=== PATIENT | male | born 1950 | race Caucasian/White ===

== ENCOUNTER → 2017-02-06 | Outpatient (CLI) | payer OTHER ==
--- NOTE | ~2017-02-06 | US10 ---
[id number] [facility]. [facility] [address]. [place], [place] [address] [id number] O MR#: [id number] Acc #: [id number] NAME: DON PIEDRA : 1950 SEX: M STUDY DATE/TIME: 02/06/2017 9:49 UNIT: [facility]US ROOM: STUDY DESCRIPTION: US Aorta Complete Attending Physician: Estella Mccabe M.D. Referring Physician: Estella Mccabe M.D. Ordering Physician: Estella Mccabe M.D. Primary Care Physician: Estella Mccabe M.D. MEDICAL IMAGING REPORT This report is preliminary unless electronic signature is present EXAM Aortic ultrasound, 02/06/17 HISTORY Family history of abdominal aortic aneurysm. Screening evaluation COMPARISON STUDIES CT abdomen and pelvis, 02/04/16 FINDINGS There is fmxz-al-exxb color flow within the abdominal aorta. It is normal in caliber throughout the abdomen, about 2 cm in maximal dimension. Iliac arteries are normal in caliber as well, about 1 cm each in maximal AP dimension. There is idvi-km-ygby color flow in the aorta and iliac vessels. IMPRESSION Normal aortic ultrasound. No evidence of aneurysm. The iliac arteries are normal in caliber as well. Dictated by... Jose A Abad M.D. THIS IS AN ELECTRONICALLY VERIFIED REPORT Jose A Abad M.D. at 02/10/2017 12:14 PM TEV/ea TD: 02/06/2017 13:02 JOB #: [id number] MEDICAL IMAGING REPORT Page 1 of 1 COPY
== END | disposition home or self-care (01) ==
LOC: CGUS 02-05 09:45
DX: Z13.6 Encounter for screening for cardiovascular disorders (principal)
CPT/HCPCS: 76770

== ENCOUNTER → 2017-05-31 | Outpatient (CLI) | payer OTHER ==
[2017-05-31 15:35] LABS: HEMOGLOBIN 15.4 gm/dL (13.0-16.0); MEAN CELL VOLUME 90.4 FL (83-96); MEAN CORPUSCULAR HEMOGLOBIN 31.7 PG (28-34); MEAN CORPUSCULAR HGB CONC 35.1 g/dL (30-36); MEAN PLATELET VOLUME 6.9 FL (6.5-11.5); RED BLOOD COUNT 4.86 X10e (3.90-5.60); RED CELL DISTRIBUTION WIDTH 13.3 % (11.0-15.5); WHITE BLOOD COUNT 9.2 X10e3 (4.0-10.5)
[2017-05-31 15:56] LABS: BUN/CREATININE RATIO 22.72; CALCIUM SERUM 8.8 mg/dL (8.4-10.2); CREATININE SERUM 1.1 mg/dL (0.6-1.4); GLOM FILT RATE Estimated 70.1 mL/min (>60); POTASSIUM 4.9 mmol/L (3.5-5.1)
== END | disposition home or self-care (01) ==
LOC: CLAB 15:10
PROVIDERS: Pain Medicine Interventional Pain Medicine
DX: Z51.81 Encounter for therapeutic drug level monitoring (principal); T81.4XXA Infection following a procedure, initial encounter; Z79.2 Long term (current) use of antibiotics
CPT/HCPCS: 36415; 80048; 80202; 85027

== ENCOUNTER → 2017-06-01 | Outpatient (CLI) | payer OTHER ==
[2017-06-01 10:26] LABS: HEMATOCRIT 44.3 % (38.0-50.0); HEMOGLOBIN 14.8 gm/dL (13.0-16.0); MEAN CELL VOLUME 92.3 FL (83-96); MEAN CORPUSCULAR HEMOGLOBIN 30.9 PG (28-34); MEAN CORPUSCULAR HGB CONC 33.5 g/dL (30-36); MEAN PLATELET VOLUME 7.1 FL (6.5-11.5); RED BLOOD COUNT 4.8 X10e (3.90-5.60); RED CELL DISTRIBUTION WIDTH 13.5 % (11.0-15.5); WHITE BLOOD COUNT 7.3 X10e3 (4.0-10.5)
[2017-06-01 10:51] LABS: BUN/CREATININE RATIO 19.16; CALCIUM SERUM 8.5 mg/dL (8.4-10.2); CREATININE SERUM 1.2 mg/dL (0.6-1.4); GLOM FILT RATE Estimated 63.1 mL/min (>60); POTASSIUM 4.6 mmol/L (3.5-5.1)
== END | disposition home or self-care (01) ==
LOC: CLAB 09:38
PROVIDERS: Pain Medicine Interventional Pain Medicine
DX: Z51.81 Encounter for therapeutic drug level monitoring (principal); Z95.2 Presence of prosthetic heart valve
CPT/HCPCS: 36415; 80048; 80202; 85027

== ENCOUNTER 2017-06-03 12:28 | Emergency (ER) | payer OTHER ==
[~2017-06-03] VITALS: Ht 177.8 cm; Wt 98.9 kg
[2017-06-03 15:42] LABS: BASOPHIL% 0.5 % (0-2.5); EOSINOPHIL# 1.4 X10e3 (0-0.7); EOSINOPHIL% 15.8 % (0.0-7.0); HEMATOCRIT 44.7 % (38.0-50.0); HEMOGLOBIN 15.1 gm/dL (13.0-16.0); LYMPHOCYTE# 1.4 X10e3 (1.0-3.5); LYMPHOCYTE% 15.4 % (17.0-45.0); MEAN CELL VOLUME 91.6 FL (83-96); MEAN CORPUSCULAR HEMOGLOBIN 30.9 PG (28-34); MEAN CORPUSCULAR HGB CONC 33.7 g/dL (30-36); MEAN PLATELET VOLUME 7.4 FL (6.5-11.5); MONOCYTE# 0.3 X10e3 (0-1.0); MONOCYTE% 3.8 % (3.0-12.0); NEUTROPHIL# 5.8 X10e3 (1.5-7.1); NEUTROPHIL% 64.5 % (40-75); PLATELET COUNT 200 X10e3 (140-420); RED BLOOD COUNT 4.88 X10e (3.90-5.60); RED CELL DISTRIBUTION WIDTH 13.4 % (11.0-15.5); WHITE BLOOD COUNT 9.1 X10e3 (4.0-10.5)
[2017-06-03 15:43] LABS: DIFF IND NO
[2017-06-03 16:07] LABS: BUN/CREATININE RATIO 22.85; CALCIUM SERUM 8.5 mg/dL (8.4-10.2); CREATININE SERUM 0.7 mg/dL (0.6-1.4); GLOM FILT RATE Estimated 99.1 mL/min (>60); POTASSIUM 4.2 mmol/L (3.5-5.1)
== END 2017-06-03 16:46 | disposition home or self-care (01) ==
LOC: CED 12:28
PROVIDERS: Emergency Medicine
DX: T78.40XA Allergy, unspecified, initial encounter (principal); I10 Essential (primary) hypertension
CPT/HCPCS: 36415; 80048; 85025; 96374; 96375; 99283; J1200; J2930